=== PATIENT | female | born 2000 | race Caucasian/White ===

== ENCOUNTER 2018-04-21 14:38 | Emergency (ER) | payer BC ==
[~2018-04-21] VITALS: Ht 162.6 cm; Wt 88.9 kg
[2018-04-21 15:01] VITALS: Ht 162.6 cm; Wt 88.9 kg
[2018-04-21 16:29] VITALS: BP 116/74
== END 2018-04-21 16:29 | disposition home or self-care (01) ==
LOC: ED 14:38
DX: L05.91 Pilonidal cyst without abscess (principal)

== ENCOUNTER 2018-04-23 17:57 | Emergency (ER) | payer BC ==
[~2018-04-23] VITALS: Ht 162.6 cm; Wt 90.3 kg
[2018-04-23 18:01] VITALS: Ht 162.6 cm; Wt 90.3 kg
[2018-04-23 19:35] VITALS: BP 135/76
== END 2018-04-23 20:06 | disposition home or self-care (01) ==
LOC: ED 17:57
DX: L05.01 Pilonidal cyst with abscess (principal)
CPT/HCPCS: J2001; Q0162

== ENCOUNTER 2018-04-25 10:44 | Emergency (ER) | payer BC ==
[~2018-04-25] VITALS: Ht 162.6 cm; Wt 88.5 kg
[2018-04-25 10:47] VITALS: Ht 162.6 cm; Wt 88.5 kg
[2018-04-25 11:26] VITALS: BP 120/59
== END 2018-04-25 11:26 | disposition home or self-care (01) ==
LOC: ED 10:44
DX: L02.31 Cutaneous abscess of buttock (principal)